=== PATIENT | female | born 1980 | race Caucasian/White ===

== ENCOUNTER 2021-07-10 18:53 | Emergency (ER) | payer OTHER ==
[2021-07-10 19:50] LABS: HEMOGLOBIN 13.7 gm/dl (12.3-15.3); RED BLOOD COUNT 4.92 M/UL (4.00-5.10); WHITE BLOOD COUNT 9.8 K/UL (4.5-11.0)
[2021-07-10 20:21] LABS: BUN/CREATININE RATIO 19 (0-10)
[2021-07-10] MEDS ORDERED: PROVENTIL HFA6.7 GM INH (23:35)
== END 2021-07-11 00:37 | disposition home or self-care (01) ==
LOC: ER1 18:53
PROVIDERS: Family Medicine
DX: R07.89 Other chest pain (principal); R06.00 Dyspnea, unspecified; R06.02 Shortness of breath
CPT/HCPCS: 71045; 80053; 82550; 82553; 84484; 84703; 85025; 93005; 96374; 96375; 99285; J2270; J2405; Q9967

== ENCOUNTER → 2021-10-05 | Outpatient (CLI) | payer OTHER ==
[~2021-10-05] MED LIST: PROVENTIL HFA6.7 GM INH
== END ==
LOC: LAB 10:34
DX: Z20.822 Contact with and (suspected) exposure to COVID-19 (principal)
CPT/HCPCS: U0003